=== PATIENT | female | born 1965 | race Caucasian/White ===

== ENCOUNTER → 2018-05-15 | Day surgery (SDC) | payer OTHER ==
[~2018-05-15] MED LIST: HYDROmorphone 2 MG/ML VIAL IV PRN; IV RINGERS,LACTATED 1000ML 1,000 ML IV SCH; LIDOCAINE 1% PF 2 ML VIAL. ID PRN; MORPHINE SULFATE 2 MG/ML VIAL. IV PRN; ONDANSETRON PF 4 MG/2 ML VIAL. IV PRN; PROCHLORPERAZINE 10 MG/2 ML VIAL. IV PRN; PROPOFOL 40 ML IV ONE; fentaNYL PF VIAL 100 MCG/2 ML VIAL IV PRN
[2018-05-15 10:51] VITALS: BP 135/71
--- NOTE | 2018-05-15 20:33 | CONS ---
DATE OF CONSULTATION: REFERRING PHYSICIAN: Ruben Hardwick MD REASON FOR CONSULTATION: Colorectal screening. HISTORY OF PRESENT ILLNESS: This is a 52-year-old female with a past medical history significant for x 2 and tobaccoism seen for a screening colon exam. Bowel habits are regular without diarrhea or constipation. There has been no melena and/or hematochezia. Weight and appetite are stable. Family history is positive for an aunt with colon cancer in her mid 70s. She is otherwise without additional complaints. PAST MEDICAL HISTORY: History of tobaccoism and history of C-sections x 2. ALLERGIES: PREGABALIN. MEDICATIONS: None. FAMILY AND SOCIAL HISTORY: She is a smoker and social drinker. Family history is significant for colon cancer with an aunt. REVIEW OF SYSTEMS: Per records. PHYSICAL EXAMINATION: GENERAL: Reveals a well-nourished and well-developed female. VITAL SIGNS: Temperature is 97.7, pulse 66 and respiratory rate is 20. HEENT: Reveals normocephalic and atraumatic head. Pupils and extraocular muscles are not tested. Sclerae anicteric. NECK: Supple. LUNGS: Clear. CARDIOVASCULAR: Reveals an S1, S2 without S3, S4 or appreciable murmur. ABDOMEN: Reveals soft abdomen and normal bowel sounds without appreciable hepatosplenomegaly. EXTREMITIES: Reveals no cyanosis, clubbing or edema. Well-healed midline infraumbilical incisions from previous C-sections are noted. IMPRESSION: Colorectal screening is warranted at this time. Risks and benefits of the procedure including the risk of hemorrhage and perforation during the operation have been discussed with the patient and is willing to proceed at this time. I thank Dr. Hardwick for allowing us to consult and participate in this patient's care. OSVALDO FLORES MD DR: RUSTAM/michelle JOB#: [id number] / [id number] ecc Ruben Hardwick
--- NOTE | 2018-05-18 18:07 | PATHOLOGY ---
[facility] Accession Number: [id number] . 01 Material submitted: . SIGMOID POLYP . 01 Clinical history: . Screening . 02 Diagnosis: Colon biopsy, sigmoid polyp: - Hyperplastic polyp. (JPM:paper grader; 05/18/2018) MBR/05/18/2018 . 02 Comment: There are no adenomatous changes or evidence of malignancy. (JPM:paper grader; 05/18/2018) . 02 Electronically signed: . Walter Sims MD, Pathologist NPI- [id number] . 01 Gross description: . Received in formalin labeled "[place], Saundra, sigmoid polyp," is a single segment of torres soft tissue measuring 0.5 cm in maximum dimension. The specimen is entirely submitted in cassette A1. (TSD; 05/15/2018) TOB/TOB . 02 Pathologist provided ICD-10: K63.5 . 02 CPT . 228812 Specimen Comment: A courtesy copy of this report has been sent to Specimen Comment: [phone], . Specimen Comment: Report sent to / DR SIMS Specimen Comment: A duplicate report has been generated due to demographic updates. Performed at: 01 [facility] [address], [place] [id number] MD Ashwin Diaz MD Phone: [phone] Performed at: 02 [facility] [address], [place] [id number] MD Walter Sims MD Phone: [phone]
== END | disposition home or self-care (01) ==
LOC: ENDOS 09:06
PROVIDERS: ATTEND Internal Medicine Gastroenterology
DX: Z12.11 Encounter for screening for malignant neoplasm of colon (principal); K63.5 Polyp of colon; K57.30 Diverticulosis of large intestine without perforation or abscess without bleeding; K64.0 First degree hemorrhoids; Z88.6 Allergy status to analgesic agent; Z98.890 Other specified postprocedural states; F17.200 Nicotine dependence, unspecified, uncomplicated; Z72.89 Other problems related to lifestyle
CPT/HCPCS: 45380; 88305; J2704

== ENCOUNTER → 2018-06-15 | Outpatient (CLI) | payer OTHER ==
[2018-05-15 10:51] VITALS: BP 135/71
--- NOTE | 2018-06-15 14:47 | RAD ---
CLINICAL INDICATION: Finding in right breast for which biopsy is recommended. PRE-PROCEDURAL CONSULTATION: Details of the procedure and possible limitations and complications were discussed with the patient. After addressing her questions and concerns, written informed consent was obtained. A time out was then taken to verify patient's name and date of as well as site and laterality. PROCEDURE: The mass at the 10 o'clock position within the right breast was targeted under ultrasound. The skin of the right breast was cleansed and prepped in the typical sterile fashion. 8 cc of 1% lidocaine was used for local anesthesia. A small skin incision was then made to permit passage of a 14 gauge spring activated biopsy device. 4 core specimens were obtained although the third core specimen was somewhat fragmented. An S shaped clip clip was then deployed at the biopsy site. Hemostasis was achieved. The patient tolerated the procedure well with no immediate complications. Post-procedural digital mammographic imaging of the right breast demonstrate the S shaped clip in appropriate position. IMPRESSION: Successful ultrasound guided core needle biopsy of a mass at the 10 o'clock position within the right breast. Pathology is pending.
--- NOTE | 2018-06-17 15:08 | PATHOLOGY ---
[facility] Accession Number: [id number] . 01 Material submitted: . RIGHT BREAST . 01 Clinical history: . Right breast mass . 02 Diagnosis: Breast tissue, right breast mass needle biopsies: - Focal stromal fibrosis and cystic change. (JPM:balbina; 06/17/2018) QMS/06/17/2018 . 02 Comment: Sections of the right breast mass needle biopsy reveal several small needle biopsy segments of breast tissue. The segments are predominantly fatty. There is focal stromal fibrosis and cystic change. There is no atypia or evidence of malignancy. Please correlate with radiographic findings. (JPM:balbina; 06/17/2018) . 02 Electronically signed: . Walter Sims MD, Pathologist NPI- [id number] . 01 Gross description: . Received in formalin labeled "Saundra Bradford, right breast," and additionally labeled on the requisition as "10:00, 2 CFN," are multiple needle cores of yellow-bryant fibrofatty tissue measuring 0.9 x 0.5 x 0.2 cm in aggregate dimensions. The tissue is submitted in its entirety in cassette A1 through A3. The cold ischemic time is 5 minutes. The total formalin fixation time is 12 hours and 30 minutes. (TSD; 06/15/2018) TOB/TOB . 02 Pathologist provided ICD-10: N60.31 . 02 CPT . 867848 Specimen Comment: A courtesy copy of this report has been sent to Specimen Comment: [phone], , . Specimen Comment: Report sent to ,DR SAUER / DR SIMS Performed at: [address], [place], [place] [id number] MD Ashwin Diaz MD Phone: [phone] Performed at: [address] [id number] MD Walter Sims MD Phone: [phone]
== END | disposition home or self-care (01) ==
LOC: US 07:52
PROVIDERS: ATTEND Surgery
DX: N60.31 Fibrosclerosis of right breast (principal); Z88.6 Allergy status to analgesic agent
CPT/HCPCS: 19083; 77065; C1713; 76942

== ENCOUNTER → 2020-04-05 | Outpatient (CLI) | payer OTHER ==
[2018-05-15 10:51] VITALS: BP 135/71
[~2020-04-05] MED LIST changes: +GADOTERATE 7.5 MMOL/15ML VIAL. IVP ONE; -HYDROmorphone 2 MG/ML VIAL IV PRN; -IV RINGERS,LACTATED 1000ML 1,000 ML IV SCH; -LIDOCAINE 1% PF 2 ML VIAL. ID PRN; -MORPHINE SULFATE 2 MG/ML VIAL. IV PRN; -ONDANSETRON PF 4 MG/2 ML VIAL. IV PRN; -PROCHLORPERAZINE 10 MG/2 ML VIAL. IV PRN; -PROPOFOL 40 ML IV ONE; -fentaNYL PF VIAL 100 MCG/2 ML VIAL IV PRN
--- NOTE | 2020-04-05 09:27 | KCIC ---
BRAIN WO/W CONTRAST Date: 04/05/2020 8:44 AM Indication: FAMILY HX OF ANEURYSM. New onset of vann lasting 4 days. Comparison: None. Technique: Multiplanar multisequence MRI of the brain was performed with and without intravenous contrast using the standard protocol. 12 cc Clariscan contrast was administered intravenously during the exam. Findings: No acute infarct. No acute or chronic hemorrhage. The ventricles are normal in size and configuration without hydrocephalus. No abnormal enhancement. The scalp and calvarium are normal. The pituitary and sella are normal. No Chiari malformation. The visualized upper cervical spine is normal. The visualized orbits and globes are normal. The visualized paranasal sinuses are clear. Nasal septum is deviated to the left. The mastoid air cells are clear. Normal flow voids within the vertebral, basilar, and internal carotid arteries indicating patency. IMPRESSION: No acute infarct or hemorrhage. No mass or abnormal enhancement. If there is persistent concern for cerebral aneurysm, MRA or CTA could be obtained. Electronically signed by: Ruben Rg MD (04/05/2020 9:24 AM) [id number]
== END ==
LOC: KCIC MRI 08:08
PROVIDERS: ATTEND Family Medicine
DX: J34.2 Deviated nasal septum (principal); Z82.49 Family history of ischemic heart disease and other diseases of the circulatory system
CPT/HCPCS: 70553; A9575